=== PATIENT | female | born 1955 | race Caucasian/White ===

== ENCOUNTER 2016-12-11 10:15 | Observation (INO) | payer BC ==
--- NOTE | 2016-12-11 10:52 | EDPHY ---
HPI/HX/ROS/PE/MDM Narrative: CHIEF COMPLAINT: Left arm weakness HISTORY OF PRESENT ILLNESS: The patient is a 61 y/o female with a history of anxiety and depression arriving with her complaining of mild left arm weakness onset two days ago. She first noticed some numbness along her left lower gums / side of her left face that resolved. She then developed a "goofy feeling" and discoordination in her left arm, though she is reluctant to describe this as weakness. Her symptoms have improved since onset, but have not completely resolved. She was able to complete a heavy workout at the gym yesterday without issue. She notes she's had increased anxiety lately with associated shortness of breath. She denies difficulty with speech, headache, gait problems, chest pain, or other complaints. She has no personal history of CAD, diabetes, or hypertension, but does believe she has high cholesterol, though she does not take medication for this. She has a family history significant for hypercholesterolemia, hypertension, coronary artery disease ( brother had stent age 45), and stroke in her mother (age 85). She took a couple doses of 81mg aspirin over the last 2 days, but does not regularly take this. She started Trileptal last night in addition to Prozac to treat her anxiety and depression. She has been dealing with thoughts of suicide recently and has considered a plan to shoot herself. She currently denies active suicidal ideation. She does have a therapist who she sees. No fever, chills, chest pain, palpitations, vomiting, diarrhea, urinary complaints, headache, lightheadedness. REVIEW OF SYSTEMS: Aside from elements discussed in the HPI, a comprehensive 10-point review of systems was reviewed and is negative. PAST MEDICAL HISTORY: Anxiety and depression, "sleep problems," unmedicated hypercholesterolemia FAMILY HISTORY: Mother had stroke age 85, hypercholesterolemia ("level of 400") and hypertension in family members, brother had cardiac stent placed age 45 SOCIAL HISTORY: at bedside. Smokes marijuana a few times daily and drinks at least one dose of alcohol daily. PCP: Dr. Chavis VITAL SIGNS: Reviewed by me. 145/81. GENERAL: Well-developed, well-nourished, seems quite anxious. HEENT: Atraumatic. Eyes: No icterus, no injection. PERRL, EOMI. Mouth: moist mucous membranes. No erythema or lesions. Neck: supple with no adenopathy. No carotid bruit. LUNGS: Clear to auscultation bilaterally, no wheezes, rhonchi or rales. CARDIAC: Regular rate and rhythm, no rubs, murmurs or gallops. ABDOMEN: Soft, nontender, nondistended, bowel sounds normal. BACK: No CVA tenderness. EXTREMITIES: No trauma. No edema. Range of motion is normal throughout. NEURO: Alert and oriented, cranial nerves II through XII are intact with exception of slight down slope on left side of mouth. (patient states this is old and a picture seems to confirm this). Motor strength 5 over 5 in all major muscle groups with exception of mild diminished left branch service representative strength 4/5, questionable pronator drift on the left. Lower extremity 5/5 throughout. Sensation intact to light touch. Normal [id number]-[id number] and [id number]-[id number]. SKIN: Warm and dry, no rash. PSYCHIATRIC: Normal mentation, anxious. Portions of this note were transcribed by a medical biller/coder. I personally performed a history, physical exam, medical decision making, and confirmed accuracy of information the transcribed note. ED Course: IV established. Labs drawn including CBC, CHEM, troponin, CK. Patient placed on front desk monitor. Chest x-ray and head CT ordered. 12-LEAD EKG: Please see the full report in [facility]. My interpretation: Normal sinus rhythm, no ST or T-wave changes. 1130: Head CT interpreted by Dr. Pederson: possible tiny subcortical subacute infarct right posterior frontal lobe at the central sulcus versus volume averaging with adjacent sulcal margin. MRI ordered. 1230: Brain MRIs demonstrates two infarcts in distribution of right cerebral artery per Dr. Potts, radiologist. See full report. I discussed these findings with the patient and recommendation admission, which she agrees to. 81mg PO aspirin administered. 1300: Spoke with hospitalist service. Dr. Christensen accepts admission for CVA. 1304: Consulted with Dr. Chavis, neurologist. They will provide consultation in the hospital. MDM: 61-year-old female presenting with left-sided facial numbness and persistent left arm numbness, clumsiness, discoordination. Symptoms have been present for 2 days. Differential diagnoses the patient's presenting complaints was considered including but not limited to intracranial injury, TIA, ischemic cerebrovascular accident, hemorrhagic cerebrovascular accident, hypoglycemia, complex migraine , metastases, tumor, seizure, or electrolyte abnormality - Data Points Imaging Results: Imaging Impressions Chest X-Ray 12/11/16 10:57 Impression: 1. No pneumonia or acute process. 2. Mild airways disease. Head CT 12/11/16 10:57 Impression: 1. Possible tiny subcortical subacute infarct right posterior frontal lobe at the central sulcus versus volume averaging with adjacent sulcal margin. 2. No additional intracranial abnormality seen. Findings discussed with Mica Sandoval MD at 11:40 hour, 12/11/2016. Brain MRI 12/11/16 11:31 Impression: Two small foci of cortical ischemic injury involving the right parietal lobe (middle cerebral artery distribution). Results called to Dr. Sandoval at 12:30 p.m. Imaging: Discussed imaging studies w/ crew caller Radiologist, I viewed and interpreted images myself Laboratory Results: Laboratory Results 12/11/16 10:35 12/11/16 10:35 12/11/16 12/11/16 10:35 10:35 WBC 3.95 10^3/uL 10^3/uL (3.80-9.50) RBC 4.56 10^6/uL 10^6/uL (4.18-5.33) Hgb 14.3 g/dL g/dL (12.6-16.3) Hct 41.5 % % (38.0-47.0) MCV 91.0 fL fL (81.5-99.8) MCH 31.4 pg pg (27.9-34.1) MCHC 34.5 g/dL g/dL (32.4-36.7) RDW 13.0 % % (11.5-15.2) Plt Count 302 10^3/uL 10^3/uL (150-400) MPV 9.3 fL fL (8.7-11.7) Neut % (Auto) 65.1 % % (39.3-74.2) Lymph % (Auto) 22.0 % % (15.0-45.0) [place] % (Auto) 10.4 % % (4.5-13.0) Eos % (Auto) 2.0 % % (0.6-7.6) Baso % (Auto) 0.5 % % (0.3-1.7) Nucleat RBC Rel Count 0.0 % % (0.0-0.2) Absolute Neuts (auto) 2.57 10^3/uL 10^3/uL (1.70-6.50) Absolute Lymphs (auto) 0.87 10^3/uL L 10^3/uL (1.00-3.00) Absolute Monos (auto) 0.41 10^3/uL 10^3/uL (0.30-0.80) Absolute Eos (auto) 0.08 10^3/uL 10^3/uL (0.03-0.40) Absolute Basos (auto) 0.02 10^3/uL 10^3/uL (0.02-0.10) Absolute Nucleated RBC 0.00 10^3/uL 10^3/uL (0-0.01) Immature Gran % 0.0 % % (0.0-1.1) Immature Gran # 0.00 10^3/uL 10^3/uL (0.00-0.10) Sodium 137 mEq/L mEq/L (134-144) Potassium 4.1 mEq/L mEq/L (3.5-5.2) Chloride 100 mEq/L mEq/L (97-110) Carbon Dioxide 24 mEq/l mEq/l (22-31) Anion Gap 13 mEq/L mEq/L (8-16) BUN 17 mg/dL mg/dL (7-23) Creatinine 0.9 mg/dL mg/dL (0.6-1.0) Estimated GFR > 60 Glucose 130 mg/dL H mg/dL (70-100) Calcium 10.1 mg/dL mg/dL (8.5-10.4) Creatine Kinase 75 IU/L IU/L (0-156) CK-MB (CK-2) Fraction 1.86 ng/mL ng/mL (0.00-3.19) Troponin I < 0.012 ng/mL ng/mL (0.000-0.034) Medications Given: Discontinued Medications Aspirin (Aspirin) 325 mg PO EDNOW ONE Stop: 12/11/16 12:57 Last Admin: 12/11/16 13:05 Dose: 325 mg General Time Seen by Provider: 12/11/16 10:31 Initial Vital Signs: Initial Vital Signs Temperature (C) 36.6 C 12/11/16 10:18 Heart Rate 60 12/11/16 10:18 Respiratory Rate 18 12/11/16 10:18 Blood Pressure 145/81 H 12/11/16 10:18 O2 Sat (%) 96 12/11/16 10:18 O2 Delivery Mode Room Air Allergies/Adverse Reactions: No Known Allergies Allergy (Unverified 12/11/16 10:17) Home Medications: Medication Instructions Recorded ALPRAZolam [Xanax 0.5 MG (*)] 0.5 mg PO HS PRN 12/11/16 Estradiol [Vivelle-Dot 0.1MG (*)] 0.1 mg TD MOTH@0800 12/11/16 Fluoxetine HCl [Prozac 40 mg] 40 mg PO DAILY 12/11/16 Herbals/Supplements -Info Only 1 ea PO DAILY 12/11/16 OXcarbazepine [Trileptal 300mg (*)] 300 mg PO BID 12/11/16 Progesterone, Micronized 100 mg PO DAILY 12/11/16 [Progesterone] Zolpidem Tartrate [Ambien 10 mg] 10 mg PO HS PRN 12/11/16 Departure - Departure Disposition: [facility] Inpatient Acute Clinical Impression: Left arm weakness Depression Qualifiers: Depression Type: other depression Qualified Code(s): F32.89 - Other specified depressive episodes CVA (cerebral vascular accident) Qualifiers: CVA mechanism: other Qualified Code(s): I63.8 - Other cerebral infarction Condition: Fair Report Scribed for: Mica Sandoval Report Scribed by: Radha Otero Date of Report: 12/11/16 Time of Report: 10:59
[2016-12-11 11:02] LABS: ADD DIFF? NO; ADD MORPH? NO; ADD SCAN? NO; ATYPICAL LYMPHOCYTE FLAG 0 (0-99); FRAGMENT RBC FLAG 0 (0-99); HEMATOCRIT 41.5 % (38.0-47.0); HEMOGLOBIN 14.3 g/dL (12.6-16.3); LEFT SHIFT FLG 0 (0-99); LIPEMIA HEMOLYSIS FLAG 90 (0-99); MEAN CELL HEMOGLOBIN 31.4 pg (27.9-34.1); MEAN CELL HEMOGLOBIN CONCENTR. 34.5 g/dL (32.4-36.7); MEAN PLATELET VOLUME 9.3 fL (8.7-11.7); PLATELET CLUMPS FLAG 10 (0-99); PLATELET COUNT 302 10^3/uL (150-400); RED BLOOD CELL COUNT 4.56 10^6/uL (4.18-5.33)
--- NOTE | 2016-12-11 11:07 | CPEKG ---
Heart Rate: 52 RR Interval: 1154 P-R Interval: 148 QRSD Interval: 84 QT Interval: 456 QTC Interval: 424 P [place]: 56 QRS [place]: 33 T Wave [place]: 30 EKG Severity - ABNORMAL ECG - EKG Impression: SINUS RHYTHM EKG Impression: CONSIDER LEFT VENTRICULAR HYPERTROPHY Electronically Signed By: Mica Sandoval 12-Dec-2016 08:06:58
[2016-12-11 11:08] LABS: ANION GAP 13 mEq/L (8-16); CALCIUM 10.1 mg/dL (8.5-10.4); CARBON DIOXIDE 24 mEq/l (22-31); CHLORIDE 100 mEq/L (97-110); CREATININE 0.9 mg/dL (0.6-1.0); GLOMERULAR FILTRATION RATE > 60; GLUCOSE 130 mg/dL (70-100); POTASSIUM 4.1 mEq/L (3.5-5.2); SODIUM 137 mEq/L (134-144)
[2016-12-11 11:20] LABS: CREATINE KINASE-MB FRACTION 1.86 ng/mL (0.00-3.19); TROPONIN I < 0.012 ng/mL (0.000-0.034)
[2016-12-11] MEDS ORDERED: ASPIRIN 325 MG TAB PO ONE (12:56)
[2016-12-11] MEDS ORDERED: ASPIRIN 81 MG CHEWABLE TAB PO ONE (13:00)
[2016-12-11] MEDS ORDERED: IOPAMIDOL (ISOVUE 370) 100 ML BTL IV ONE (13:59)
[2016-12-11] MEDS ORDERED: ACETAMINOPHEN 325 MG TAB PO PRN (14:26)
[2016-12-11] MEDS ORDERED: ONDANSETRON DISINTEGRATING 4 MG TAB PO PRN (14:26)
[2016-12-11] MEDS ORDERED: ONDANSETRON 4 MG/2 ML VIAL IVP PRN (14:26)
[2016-12-11] MEDS ORDERED: ALPRAZolam 0.5 MG TAB PO PRN (14:27)
[2016-12-11] MEDS ORDERED: NON-FORMULARY NEW DRUG (Zolpidem Tartrate [Ambien 10 Mg] 10 MG) PO PRN (14:27)
[2016-12-11] MEDS ORDERED: LABETALOL HCL 5 MG/ML 20 ML MDV IVP PRN (14:28)
--- NOTE | 2016-12-11 14:54 | GHP ---
[f rep st] HISTORY AND PHYSICAL DATE OF ADMISSION: 12/11/2016 CHIEF COMPLAINT: Left finger numbness and weakness. HISTORY OF PRESENT ILLNESS: This is a 61-year-old female with not a lot of cardiac risk factors oth er than family history who presents with 2 days of left hand and finger tingling and some weakness i n her 3rd and 4th fingers. She denies any headache. No other focal weakness. No chest pain or alexandro rtness of breath. It first started with some numbness in the left lower gums. She has been taking aspirin for the last 2 days but does not usually take it. She has been having significant problems with anxiety and depression and has had actually some suici mic thoughts lately. REVIEW OF SYSTEMS: A 10-point review of systems was obtained and other than stated was negative. PAST MEDICAL HISTORY: 1. Anxiety and depression. 2. Insomnia. FAMILY HISTORY: Brother had a stent placed at age 45. There is elevated cholesterol in the family as well as hypertension. SOCIAL HISTORY: Does smoke marijuana with 1 drink per day. Is . PHYSICAL EXAM: VITAL SIGNS: Afebrile, blood pressure 148/86, heart rate 73, oxygen saturation 96% on room air. GENERAL: Well-developed. No apparent distress. HEENT: Nonicteric sclerae. Extraoc ular movements intact. Moist mucous membranes. NECK: Supple. No thyromegaly. LUNGS: Good effor t. Clear to auscultation bilaterally. CARDIOVASCULAR: Regular rate and rhythm. No murmurs or gal lops. ABDOMEN: Positive bowel sounds. Soft, nontender, nondistended. No hepatosplenomegaly. EXT REMITIES: No clubbing, cyanosis, or edema. SKIN: Without rash, warm, intact. NEUROLOGIC: Alert and oriented x3. There is some slight weakness in the interosseous muscles of the 3rd and 4th finge rs on the left. No pronator drift. 5/5 strength in all 4 extremities. PSYCH: Normal mood and aff ect. LABS: CBC and chemistry are normal. EKG personally reviewed and interpreted. Shows normal sinus rhythm. Slight ST-segment elevations a nteriorly, which I think is repolarization, possibly of LVH. Chest x-ray is normal. MRI of the brain shows 2 small areas of ischemia in the right parietal lobe. ASSESSMENT: This is a 61-year-old female suffering from 2 small cerebrovascular accidents. PLAN: Patient will be admitted. Neurology has been consulted. Will continue with aspirin. She is outside the tPA window. Will get echo and carotid ultrasound as well as check her lipids. Probabl y will need to start statin and discharge on aspirin as well. /[id number]/MODL
[2016-12-11] MEDS ORDERED: ZOLPIDEM TARTRATE 5 MG TAB PO PRN (15:06)
--- NOTE | 2016-12-11 17:33 | NEUROPROG ---
Assessment: Chart reviewed. Full consult tomorrow. 2 small cortically based infarcts in the right frontal lobe - one involving the precentral knob, and another more inferolateral along the convexity. CTA head/neck with patent extracranial/intracranial circulation. Given patent vessels and multiple cortical infarcts, I am incredibly suspicious of cardioembolism. Cont ASA 325mg daily for now - would favor empiric anticoagulation in 5 days with close cardiology followup for mobile outpatient cardiac telemetry (that is if no afib captured on tele here). Await TTE result - perhaps some epiphenomenon of afib may be present, such as dilated LA Statin for goal LDL < 70 Goal normotension - intervene for sustained SBPs > 160 Goal A1c < 6.5 PT/OT/DRUM STOCK CLERK consults Stroke education Objective: Vital Signs Temp Pulse Resp BP Pulse Ox 36.9 C 62 16 130/81 H 96 12/11/16 16:42 12/11/16 16:42 12/11/16 16:42 12/11/16 16:42 12/11/16 16:42 Allergies/Adverse Reactions: No Known Allergies Allergy (Unverified 12/11/16 10:17)
--- NOTE | 2016-12-11 17:39 | ECHO ---
[id number] + + [address] : : [place] [address] : : [phone] + + Adult Echocardiographic Report + ----+ :Name: ELIEZER WICK MStudy Date: 12/11/2016 02:00 PM : : Hospital Admission Number: [id number] : :: 1955 Gender: Female Height: 66 i n : :Age: 61 yrs Race: WH Weight: 125 lb : :Reason For Study: CVA : : BSA: 1.6 met ers2: :History: Breast implants : + ----+ MMode/2D Measurements \T\ Calculations IVSd: 0.71 cm LVIDd: 3.8 cm FS: 35.0 % Ao root diam: 3.1 cm LVPWd: 0.96 cm LVIDs: 2.5 cm EDV(Teich): 62.0 ml LA dimension: 3.4 cm ESV(Teich): 21.7 ml EF(Teich): 65.0 % Normal Measurement Values: + + :LVIDd (3.5-5.7cm) IVSd (0.6-1.1cm) LVPWd (0.6-1.1cm) Aortic Root (2.0-3.7cm)Left Atrium (1.5-4.0cm): :LV Vol(d) (76-115ml) LV Vol(s) (29-48ml) Ejec Fraction (50-65%)PV Fuad (0.6- 1.2m/s) TV Fuad (0.4-1.0m/s) : :MV E Fuad (0.8-1.0m/s)MV A Fuad (0.3-1.0m/s)LVOT Fuad (0.7-1.2m/s) Asc Ao Fuad ( 0.9-1.8m/s) : + + Doppler Measurements \T\ Calculations MV E max fuad: 57.3 cm/sec Ao V2 max: 126.0 cm/sec MV A max fuad: 62.2 cm/sec Ao max P.4 mmHg MV E/A: 0.92 Left Ventricle The left ventricle is normal in size. There is normal left ventricular wall thickness. Left ventricular systolic function is normal. Ejection Fraction = 65-70%. No regional wall motion abnormalities noted. Right Ventricle The right ventricle is normal in size and function. Atria The left atrium is mildly dilated. Right atrial size is normal. Injection of contrast documented an interatrial shunt. The atrial septum is aneurysmal. Mitral Valve The mitral valve is normal in structure and function. There is no evidence of mitral valve prolapse. There is no mitral valve stenosis. There is trace mitral regurgitation. Tricuspid Valve Normal tricuspid valve. There is trace tricuspid regurgitation. Aortic Valve The aortic valve is trileaflet. The aortic valve opens well. There is no aortic stenosis. There is no aortic insufficiency. Pulmonic Valve The pulmonic valve is normal in structure and function. Great Vessels The aortic root is normal size. Pericardium/Pleural There is no pericardial effusion. Conclusion A complete two-dimensional transthoracic echocardiogram was performed (2D, M-mode, Doppler and color flow Doppler). Left ventricular systolic function is normal. Ejection Fraction = 65-70%. The left atrium is mildly dilated. The atrial septum is aneurysmal. Injection of contrast documented an interatrial shunt. Normal appearing valves. There is trace mitral regurgitation. There is trace tricuspid regurgitation. Consider NALLELY in light of positive agitated saline contrast study and history of CVA. Final Reading Physician: Deion Kitchen signed on 12/11/2016 05:38 PM Ordering Physician: Odilia Christensen Performed By: Kareen Patel, ROBECS
[2016-12-11] MEDS: OXcarbazepine 300 MG TAB PO SCH (20:36)
[2016-12-12 04:59] LABS: CHOLESTEROL 207 mg/dL (140-220); CHOLESTEROL/HDL RATIO 2.72 RATIO (1.00-4.44); HIGH DENSITY LIPOPROTEIN 76 mg/dL (40-85); LDL/HDL RATIO 1.53 RATIO (1.00-3.22); LOW DENSITY LIPOPROTEIN 116 mg/dL (80-100); NON-HIGH DENSITY LIPOPROTEIN 131 mg/dL (90-129); TRIGLYCERIDE 77 mg/dL (35-135); VERY LOW DENSITY LIPOPROTEINS 15 mg/dL (8-25)
[2016-12-12 07:54] VITALS: RESP 12
[2016-12-12] MEDS ORDERED: FLUoxetine 20 MG CAP PO SCH (09:00)
[2016-12-12] MEDS ORDERED: ASPIRIN 325 MG TAB PO SCH (09:00)
[2016-12-12] MEDS ORDERED: NON-FORMULARY NEW DRUG (Fluoxetine Hcl [Prozac 40 Mg] 40 MG) PO SCH (09:00)
[2016-12-12] MEDS: OXcarbazepine 300 MG TAB PO SCH ×2 (09:05→11:45)
--- NOTE | 2016-12-12 12:21 | NEUROPROG ---
Assessment: HOSPITAL NEUROLOGY CONSULT REQUESTING: Odilia Christensen MD REASON: stroke HPI: 61 year old right-handed woman with a history of anxiety, insomnia and untreated hyperlipidemia who presented to our ED yesterday with feelings of left hand clumsiness and facial numbness. Patient states she developed rather abrupt onset of the aforementioned symptoms on Thursday 12/07. She thought this may be related to her profound anxiety, so she waited for symptoms to improve. Since they did not improve, this inspired ED evaluation. ED evaluation included an MRI brain wo which showed 2 small foci of acute ischemic strokes in the cortex of the right frontal lobe ( specifically, the precentral knob and more inferolaterally along the convexity) . She was admitted for further stroke workup. TTE was done on the floor yesterday showing mild LA dilation and a PFO. Her symptoms are improving. She has no prior history of stroke/TIA. She denies any episodes of CP, palpitations or SOB. No injuries to the LEs. She was on a 2 hour flight the weekend prior to symptoms onset. No known history of coagulopathy. ROS: As per the HPI, otherwise a complete 12 point ROS was performed and is negative ALLERGIES AND MEDS: As recorded in the EMR - reviewed and reconciled PFSH: As per the intake H&P by Dr. Christensen from yesterday. EXAM: VS reviewed in EMR GEN: WDWN laying in NAD HEENT: NCAT, sclera anicteric, conjunctiva not injected, MMM, oropharynx clear, no scalp tenderness NECK: supple, nontender, no meningismus CV: RRR s1 s2 wo m/r/c/g. Carotid pulses 2+ wo bruit NEURO: MS: awake, alert, oriented to all spheres. Speech nondysarthric. No language disturbance. Follows commands. Attends to both sides. Recent/remote memory grossly intact. Mood very anxious with congruent affect. Good fund of knowledge. CN: pupils 5mm round and reactive. Fundi with sharp discs. VFF. Primary gaze centered. Full ocular motility. Facial sensation preserved. Face symmetric. Hearing grossly intact to finger rub. Palatoglossal movements intact. Shoulder shrug and head turn strong. MOTOR: normal bulk/tone. No adventitial movements. Very subtle weakness in left finger extensors and intrinsic hand muscles, otherwise full power. SENSORY: intact to all modalities throughout. No extinction. COORD: no ataxia FN/HS. Brown slightly more labored in the left hand. REFLEX: plantars equivocal. No clonus. DTRS 2+/4 on right and 3+/4 on left. GAIT: deferred to PT safety eval DATA REVIEW: Labs reviewed in EMR LDL 116 TTE with preserved EF, no mass/thrombus, PFO on bubble study, mildly dilated LA PERSONALLY INTERPRETED RESULTS AND DATA: MRI brain wo per the background CTA head/neck - patent intracranial/extracranial vessels IMPRESSION AND RECOMMENDATIONS: // ACUTE ISCHEMIC STROKE - EMBOLIC // HYPERLIPIDEMIA // ANXIETY 2 small cortically based infarcts in the right frontal lobe - one involving the precentral knob, and another more inferolateral along the convexity. CTA head/neck with patent extracranial/intracranial circulation. Given patent vessels and multiple cortical infarcts, I am incredibly suspicious of cardioembolism from afib (dilated LA) or paradoxical embolization from LE DVT (recent air travel). Check LE dopplers for DVT (ordered) - if this is negative, will need to check CTA chest (PE protocol) to eval for occult pulmonary emboli. Cont ASA 325mg daily for now - would favor transitioning to empiric anticoagulation in 4 days (can start 12/16). If no evidence of DVT/PEs, then will need close cardiology followup for mobile outpatient cardiac telemetry ( that is if no afib captured on tele here). Statin for goal LDL < 70 Goal normotension - intervene for sustained SBPs > 160 Goal A1c < 6.5 PT/OT/ART EDUCATOR consults Stroke education Patient can be discharged home once LE dopplers and CTA chest complete and reviewed. Followup with me in stroke clinic in 8-12 weeks. Will need cardiology and possibly hematology followup pending results of imaging studies. 85 mins spent in direct patient care activities on the floor. Objective: Vital Signs Temp Pulse Resp BP Pulse Ox 36.9 C 56 L 12 134/72 H 94 12/12/16 11:08 12/12/16 11:08 12/12/16 11:08 12/12/16 11:08 12/12/16 11:08 12/11/16 12/12/16 12/13/16 05:59 05:59 05:59 Intake Total 500 Balance 500 Allergies/Adverse Reactions: No Known Allergies Allergy (Unverified 12/11/16 10:17)
[2016-12-12 15:13] VITALS: BP 138/75; PULSE 57; TEMP 97.3; O2SAT 93
[2016-12-12] MEDS ORDERED: IOPAMIDOL (ISOVUE 370) 100 ML BTL IV ONE (17:01)
--- NOTE | 2016-12-12 17:18 | PDDCSUM ---
Discharge Summary Discharge Summary: DISCHARGE DIAGNOSES: -Acute right parietal stroke with 2 lesions on MRI scan -LDL of 116 -Interatrial shunt on echocardiogram CONSULTANTS: Dr. Geronimo Chavis PROCEDURES: MRI of brain with evidence of 2 acute right parietal cortical stroke lesions, ischemic CT scan of head CT angio of head and neck Doppler ultrasound of both legs without evidence of thrombus CT angio of lungs with No evidence of pulmonary embolism Echocardiogram with inter atrial shunt with aneurysmal movement of the interatrial septum, question of PFO or atrial septal defect. HOSPITAL COURSE SUMMARY: The patient was admitted to the hospital after presenting with some mild symptoms of weakness and fingers of the left hand was found to have 2 very small but distinct right parietal ischemic strokes which appeared acute. She presented outside the time window for tPA and had very minimal deficit so did not receive tPA. She had no concerning vascular lesions on vascular imaging. On observation overnight she did not have any recurrence or new neurologic symptoms, any headache, anything to suggest bleeding, any palpitations or chest pain, or any other complications. Her presenting symptoms did improve while she was here and she is using her hand quite well. The patient is not on platelet inhibitors and so at this point is started on platelet inhibitors. She is found to have a mildly elevated LDL cholesterol sugars she is started on a statin at this time. She did not have any atrial fibrillation on registered nurse cardiac telemetry. However on echocardiogram she has an abnormal bubble study with inter atrial shunt, left atrial enlargement and aneurysmal change of the interatrial septum. Doppler imaging of the leg showed no DVT. CT angio of the chest showed. I reviewed the patient's case in detail with Dr. Moy Puente who read her echocardiogram. There is some retrospective data raising possibility of increased risk of stroke in patients with PFO and inter atrial shunt. He is recommending a transesophageal echocardiogram to further assess this and I agree with him. We will set up the patient to come into Cardiology Clinic this coming week for NALLELY as well as to set up further outpatient monitoring to look for atrial fibrillation PENDING TEST RESULTS: none MEDICATION CHANGES: Aspirin 81 mg daily is added Lipitor 10 mg daily is added and will need follow-up laboratory studies FOLLOW-UP PLAN: -She will follow up at [facility] for further assessment. This should include cardiac patient monitor such as a loop recorder or similar to look for AFib , and consideration of NALLELY to better define the characteristics of her inter atrial shunt and whether there is concerning possibility of right to left shunting. -She will start on aspirin now but consideration for anticoagulation therapy will be made after we further look at her inter atrial septum with NALLELY and look at ongoing cardiac monitoring as outpatient. -She will follow up with her primary care physician for her Lipitor treatment for high LDL cholesterol in setting of stroke Greater than 35 minutes bedside and care coordination time today
--- NOTE | 2016-12-12 18:02 | PDDCSUM ---
Discharge Summary Discharge Summary: DISCHARGE DIAGNOSES: CONSULTANTS: PROCEDURES: HOSPITAL COURSE SUMMARY: PENDING TEST RESULTS: MEDICATION CHANGES: FOLLOW-UP PLAN: Greater than 35 minutes bedside and care coordination time today
[2016-12-14 01:35] LABS: HEMOGLOBIN A1C 5.9 % (4.0-6.0)
== END 2016-12-12 18:22 | disposition home or self-care (01) ==
LOC: F3N 15:01
PROVIDERS: ADMIT Hospitalist; ATTEND Internal Medicine
DX: I63.9 Cerebral infarction, unspecified (principal); Q21.1 Atrial septal defect; E78.5 Hyperlipidemia, unspecified; F41.9 Anxiety disorder, unspecified; F32.9 Major depressive disorder, single episode, unspecified; G47.00 Insomnia, unspecified; Z82.49 Family history of ischemic heart disease and other diseases of the circulatory system; Z82.3 Family history of stroke
CPT/HCPCS: 70450; 70496; 70498; 70551; 71020; 71275; 92610; 93005; 93306; 93970; 97161; 97165; 99285; G0378; Q9967

== ENCOUNTER 2016-12-24 08:05 | Day surgery (SDC) | payer BC, OTHER ==
[2016-12-24] MEDS ORDERED: NS 500 ML IV ONE (08:11)
[2016-12-24] MEDS ORDERED: BENZOCAINE UNIT DOSE SPRAY HURRICAINE MM ONE (08:11)
[2016-12-24] MEDS ORDERED: MIDAZOLAM 2 MG/2 ML VIAL IVP ONE (08:11)
[2016-12-24] MEDS ORDERED: fentaNYL 100 MCG/2 ML INJ IVP ONE (08:11)
[2016-12-24] MEDS ORDERED: fentaNYL 100 MCG/2 ML INJ ONE ×2 (09:21→12:27)
[2016-12-24] MEDS ORDERED: MIDAZOLAM 2 MG/2 ML VIAL ONE (09:21)
--- NOTE | 2016-12-24 12:18 | PDGENHP ---
History & Physical Chief Complaint: stroke History of Present Illness: 61 yo s/p cryptogenic stroke here for NALLELY, rule out source of emboli. No hx. of dysphagia. No hx. of intolerance to anesthesia Pertinent Past, Social, Family History: negative Relevant Physical Exam: 110/70. No jvp. Chest clear. Cor RRR. Abdomen soft Cardiorespiratory Assessment: 1. No contraindications to NALLELY. 2. Healthy female
--- NOTE | 2016-12-24 12:19 | PDPROPOC ---
Sedation Plan of Care Sedation Plan of Care: vital signs stable, mental status noted, patient educated of risks, benefits, alternatives, patient can tolerate sedation ASA Classification: ASA 1 Planned drugs: fentanyl, midazolam Mallampati Score: Class 1 Mallampati Reference Image: Patient passed 3-3-2 rule?: Yes
== END 2016-12-24 13:45 | disposition home or self-care (01) ==
LOC: FCATH 08:05
PROVIDERS: ATTEND Internal Medicine Cardiovascular Disease
PROC: B245ZZ4 Ultrasonography of Left Heart, Transesophageal (ICD-10-PCS; principal; 2016-12-24)
DX: Q21.1 Atrial septal defect (principal); Z86.73 Personal history of transient ischemic attack (TIA), and cerebral infarction without residual deficits; E78.5 Hyperlipidemia, unspecified; F41.9 Anxiety disorder, unspecified; F32.9 Major depressive disorder, single episode, unspecified; Z82.49 Family history of ischemic heart disease and other diseases of the circulatory system; Z82.3 Family history of stroke
CPT/HCPCS: J2250; J3010

== ENCOUNTER → 2017-06-29 | Outpatient (CLI) | payer BC | LOC: FIMAGING 10:33 | PROVIDERS: ATTEND Obstetrics & Gynecology | DX: Z12.31 Encounter for screening mammogram for malignant neoplasm of breast (principal) ==